=== PATIENT | male | born 1995 | race Asian ===

== ENCOUNTER 2016-09-25 00:51 | Emergency (ER) | payer OTHER ==
--- NOTE | 2016-09-25 01:19 | ED ---
Zackary Townsend Billy scribed for Neri Bennett MD on 09/25/16 at 0112 . Head Injury - HPI Summary HPI Summary: Patient is a 20 year-old male coming to [facility] for evaluation of head injury today. His friends are here in the ED to help provide history. They report that he had been drinking alcohol tonight and slipped while walking [address] [facility] [place] and hit his head on the pavement. No LOC. He also has multiple small abrasions on his extremities. Nausea without vomiting. No other drugs tonight. - History Of Current Complaint Chief Complaint: EDHeadInjury Stated Complaint: FALL/HEAD INJURY Time Seen by Provider: 09/25/16 01:03 Hx Obtained From: Patient Mechanism Of Injury: Fall From A Standing Position Onset/Duration: Started Hours Ago Onset of Pain: Immediate Severity Currently: Moderate Severity Initially: Moderate Pain Intensity: 2 Pain Scale Used: 0-10 Numeric Aggravating Factor(s): Other: - none Alleviating Factor(s): Other: - none Associated Signs And Symptoms: Nausea - Allergies/Home Medications Allergies/Adverse Reactions: Allergies Allergy/AdvReac Type Severity Reaction Status Date / Time Peanut-containing Drug Allergy Unknown Verified 09/25/16 00:56 Products Reaction Details PMH/Surg Hx/FS Hx/Imm Hx Sensory History: Denies: Hx Deafness Opthamlomology History: Denies: Hx Legally Blind Infectious Disease History: No Infectious Disease History: Denies: Traveled Outside the in Last 30 Days - Family History Known Family History: Positive: Hypertension - Social History Alcohol Use: Occasionally Hx Tobacco Use: No Smoking Status (MU): Never Smoked Tobacco Review of Systems Skin: Other - Multiple abrasions Neurological: Other - Head injury All Other Systems Reviewed And Are Negative: Yes Physical Exam Triage Information Reviewed: Yes Vital Signs On Initial Exam: Initial Vitals Temp Pulse Resp BP Pulse Ox 97.9 F 70 14 117/68 100 09/25/16 00:54 09/25/16 00:54 09/25/16 00:54 09/25/16 00:54 09/25/16 00:54 Vital Signs Reviewed: Yes Appearance: Positive: Well-Appearing, No Pain Distress - aob Skin: Positive: Warm, Other - mult sup lacs to face Eyes: Positive: SEA ENT: Positive: Hearing grossly normal Neck: Positive: Supple Respiratory/Lung Sounds: Positive: Breath Sounds Present Cardiovascular: Positive: RRR Abdomen Description: Positive: Nontender, Soft Bowel Sounds: Positive: Present Musculoskeletal: Positive: Strength/ROM Intact Neurological: Positive: Sensory/Motor Intact, Alert, Oriented to Person Place, Time Psychiatric: Positive: Affect/Mood Appropriate Diagnostics - Vital Signs Vital Signs Temp Pulse Resp BP Pulse Ox 09/25/16 00:54 97.9 F 70 14 117/68 100 - Laboratory Lab Statement: Any lab studies that have been ordered have been reviewed, and results considered in the medical decision making process. - CT Maxillofacial CT Interpretation Completed By: Radiologist - No fractures identified. Probable multifocal sinusitis. Head Injury Course/Dx - Diagnoses Provider Diagnoses: Alcohol intoxication, Facial abrasion Discharge - Discharge Plan Condition: Improved Disposition: HOME Patient Education Materials: Alcohol Intoxication (ED), Facial Laceration (ED) Referrals: [facility] [Primary Care Provider] - The documentation as recorded by the Zackary fuller Billy accurately reflects the service I personally performed and the decisions made by , Neri Bennett MD.
--- NOTE | 2016-09-25 07:31 | RAD ---
INDICATION: Facial trauma. COMPARISON: There are no prior studies available for comparison. TECHNIQUE: Contiguous axial sections of the axial images of the facial bones were obtained and reconstructed in the coronal and sagittal planes. FINDINGS: Soft tissue swelling is noted anterior to the mandible, maxilla and left frontal bone. The fabian of the orbits and maxillary sinuses appear intact. The zygomatic arches appear intact. There is no evidence for a fracture of the mandible. The nasal bones appear intact. There is moderate to severe deviation of the nasal septum toward the left side. The pterygoid plates appear intact. There is moderate to severe circumferential mucosal thickening within the maxillary sinuses with small air-fluid levels. There is also mucosal thickening within the ethmoid air cells. The frontal, sphenoid sinuses and mastoid air cells appear clear. IMPRESSION: 1. NO EVIDENCE FOR FRACTURE. 2. FINDINGS CONSISTENT WITH ETHMOID AND MAXILLARY SINUSITIS.
[2016-09-25 08:39] VITALS: BP 113/72
== END 2016-09-25 08:39 | disposition home or self-care (01) ==
LOC: ED 00:51
DX: S00.81XA Abrasion of other part of head, initial encounter (principal); F10.129 Alcohol abuse with intoxication, unspecified; W01.0XXA Fall on same level from slipping, tripping and stumbling without subsequent striking against object, initial encounter; Y92.214 College as the place of occurrence of the external cause; Y90.8 Blood alcohol level of 240 mg/100 ml or more
CPT/HCPCS: 36415; 70486; 80320; 99283; G0480